=== PATIENT | female | born 1985 | race Caucasian/White ===

== ENCOUNTER 2019-01-22 05:50 | Emergency (ER) | payer SELFPAY ==
[2019-01-22] MEDS ORDERED: BENZONATATE 100 MG CAP PO ONE (07:10)
[2019-01-22] MEDS ORDERED: ONDANSETRON 4 MG (ODT) TAB ONE (07:10)
--- NOTE | 2019-01-22 07:32 | ER ---
Nurse's Notes [facility] Name: Lara Jackson Age: 33 yrs Sex: Female : 1985 Arrival Date: 01/22/2019 Time: 05:53 Bed 8 Private MD: Diagnosis: Acute upper respiratory infection, unspecified Presentation: 01/22 06:05 Presenting complaint: Patient states: she has been coughing up green "chunks" x 3 days, bb she is congested, disoriented, nauseous, and vomited x 1 one day ago. Pt also c/o upper abdominal pain and a sore throat. Pt states she swam [place] the [facility] [place] on and does not know if that has anything to do with it. Transition of care: patient was not received from another setting of care. Onset of symptoms was January 19, 2019. Risk Assessment: Do you want to hurt yourself or someone else? Patient reports no desire to harm self or others. Initial Sepsis Screen: Does the patient meet any 2 criteria? No. Patient's initial sepsis screen is negative. Does the patient have a suspected source of infection? No. Patient's initial sepsis screen is negative. Care prior to arrival: None. 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 - Social history:: Smoking status: Patient uses tobacco products, smokes one pack cigarettes per day. Patient/guardian denies using alcohol, street drugs. - Ebola Screening: : No symptoms or risks identified at this time. Screenin:05 Abuse screen: Denies threats or abuse. Denies injuries from another. Nutritional rr5 screening: No deficits noted. Tuberculosis screening: No symptoms or risk factors identified. Fall Risk None identified. Total Jasso Fall Scale indicates No Risk (0-24 pts). Assessment: 06:05 General: Appears in no apparent distress. uncomfortable, Behavior is calm, cooperative, rr5 appropriate for age. Pain: Complains of pain in abdomen Pain does not radiate. Pain currently is 4 out of 10 on a pain scale. Quality of pain is described as aching, Pain began gradually, Is intermittent. 06:05 Neuro: Level of Consciousness is awake, alert, obeys commands, Oriented to person, rr5 place, time, situation, Appropriate for age. Cardiovascular: Capillary refill < 3 seconds Patient's skin is warm and dry. Respiratory: Reports cough that is productive, Airway is patent Respiratory effort is even, unlabored, Respiratory pattern is regular, symmetrical, Sputum is thick, green. GI: Abdomen is round non-distended, Reports lower abdominal pain, upper abdominal pain, nausea, vomiting. : No signs and/or symptoms were reported regarding the genitourinary system. EENT: No signs and/or symptoms were reported regarding the EENT system. Derm: Skin is intact, Skin temperature is warm. Musculoskeletal: Circulation, motion, and sensation intact. Capillary refill < 3 seconds. 07:00 Reassessment: Patient appears in no apparent distress at this time. Patient is alert, rr5 oriented x 3, equal unlabored respirations, skin warm/dry/pink. came back from [facility] via wheelchair assisted by xray staff. 07:57 Reassessment: Patient is alert, oriented x 3, equal unlabored respirations, skin aa5 warm/dry/pink. Vital Signs: 06:09 BP 104 / 74; Pulse 71; Resp 16 S; Temp 97.4(O); Pulse Ox 98% on R/A; Weight 68.04 kg bb (R); Height 5 ft. 2 in. (157.48 cm) (R); 07:55 BP 109 / 72; Pulse 64; Resp 16 S; Temp 97.5(TE); Pulse Ox 99% on R/A; aa5 06:09 Body Mass Index 27.44 (68.04 kg, 157.48 cm) bb ED Course: 05:53 Patient arrived in ED. ds1 05:58 Ronak Selby, RN is Primary Nurse. rr5 06:05 Patient has correct armband on for positive identification. Bed in low position. Call rr5 light in reach. 06:08 Triage completed. bb 06:09 Arm band placed on Patient placed in an exam room, on a stretcher, on pulse oximetry. bb Family accompanied patient. 06:22 Dave Pugh PA is PHCP. cp 06:22 Silverio Go MD is Attending Physician. 06:58 X-ray completed. Patient tolerated procedure well. Patient moved back from radiology. 1 07:01 XRAY Chest Pa And Lat (2 Views) In Process Unspecified. EDMS 07:57 No provider procedures requiring assistance completed. Patient did not have IV access aa5 during this emergency room visit. Administered Medications: 06:54 Drug: Zofran 4 mg Route: PO; ea 07:57 Follow up: Response: No adverse reaction aa5 06:54 Drug: Tessalon Perle 200 mg Route: PO; ea 07:57 Follow up: Response: No adverse reaction aa5 Outcome: 07:31 Discharge ordered by MD. cp 07:57 Discharged to home ambulatory, with significant other. aa5 07:57 Condition: stable 07:57 Discharge instructions given to patient, Instructed on discharge instructions, follow up and referral plans. medication usage, Demonstrated understanding of instructions, follow-up care, medications, Prescriptions given X 3. 07:58 Patient left the ED. aa5 Signatures: Dispatcher [employer] EDMS Amalia Gaytan mh1 [employer] ds1 [address]ena [address] RN RN Carrie Bernal, RN RN aa5 Dave Pugh PA PA cp Antunez, Elena, RN RN Ronak Rich, RN RN rr5
--- NOTE | 2019-01-22 07:32 | EDPHYS ---
Physician Documentation [facility] Name: Lara Jackson Age: 33 yrs Sex: Female : 1985 Arrival Date: 01/22/2019 Time: 05:53 Bed 8 Private MD: ED Physician Silverio Go HPI: 01/22 06:45 This 33 yrs old Female presents to ER via Ambulatory with complaints of cp Cough, Nausea. 06:45 The patient or guardian reports cough, that is intermittent, with productive sputum, cp that is green. Onset: The symptoms/episode began/occurred 3 day(s) ago. Severity of symptoms: in the emergency department the symptoms are unchanged, despite home interventions. Associated signs and symptoms: Pertinent positives: nausea, sore throat, Pertinent negatives: chest pain, diarrhea, fever, active vomiting. 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 - Social history:: Smoking status: Patient uses tobacco products, smokes one pack cigarettes per day. Patient/guardian denies using alcohol, street drugs. - Ebola Screening: : No symptoms or risks identified at this time. ROS: 06:50 Constitutional: Negative for body aches, chills, fever, poor PO intake. cp 06:50 Eyes: Negative for injury, pain, redness, and discharge. cp 06:50 ENT: Positive for sore throat, Negative for drainage from ear(s), ear pain, sinus pain, difficulty swallowing, difficulty handling secretions. 06:50 Respiratory: Positive for cough, with green sputum, Negative for shortness of breath, wheezing. 06:50 Abdomen/GI: Positive for abdominal pain, nausea, Negative for diarrhea, constipation, active vomiting. 06:50 Back: Negative for radiated pain. 06:50 : Negative for urinary symptoms. 06:50 Neuro: Negative for altered mental status, headache, weakness. 06:50 All other systems are negative. Exam: 06:50 Head/Face: Normocephalic, atraumatic. cp 06:50 Constitutional: The patient appears in no acute distress, alert, awake, non-toxic, well developed, well nourished. 06:50 Eyes: Periorbital structures: appear normal, Conjunctiva: normal, no exudate, no injection, Lids and lashes: appear normal, bilaterally. 06:50 ENT: External ear(s): are unremarkable, Ear canal(s): are normal, clear, TM's: bulging, is not appreciated, bilaterally, dullness, bilaterally, erythema, is not appreciated, bilaterally, Nose: is normal, Mouth: Lips: moist, Oral mucosa: moist, Posterior pharynx: Airway: no evidence of obstruction, patent, Tonsils: with erythema, no exudate, erythema, that is mild, exudate, is not appreciated. 06:50 Neck: ROM/movement: is normal, is supple, without pain, no range of motions limitations, no meningismus, no nuchal rigidity. 06:50 Chest/axilla: Inspection: normal, Palpation: is normal, no crepitus, no tenderness. 06:50 Cardiovascular: Rate: normal, Rhythm: regular. 06:50 Respiratory: the patient does not display signs of respiratory distress, Respirations: normal, no use of accessory muscles, no retractions, no splinting, no tachypnea, labored breathing, is not present, Breath sounds: decreased breath sounds, are not appreciated, stridor, is not appreciated, + upper airway congestion. wheezing: is not appreciated. 06:50 Abdomen/GI: Inspection: abdomen appears normal, Palpation: abdomen is soft and non-tender, in all quadrants, involuntary guarding, is not appreciated. Vital Signs: 06:09 BP 104 / 74; Pulse 71; Resp 16 S; Temp 97.4(O); Pulse Ox 98% on R/A; Weight 68.04 kg bb (R); Height 5 ft. 2 in. (157.48 cm) (R); 07:55 BP 109 / 72; Pulse 64; Resp 16 S; Temp 97.5(TE); Pulse Ox 99% on R/A; aa5 06:09 Body Mass Index 27.44 (68.04 kg, 157.48 cm) bb MDM: 06:39 Patient medically screened. cp 07:20 Differential Diagnosis: Bronchitis Influenza Sinusitis Pharyngitis Otitis Media Viral cp Syndrome Pneumonia. 07:20 Data reviewed: vital signs, nurses notes, lab test result(s), radiologic studies, plain cp films. Test interpretation: by ED physician or midlevel provider: chest xray negative for infiltrates. Counseling: I had a detailed discussion with the patient and/or guardian regarding: the historical points, exam findings, and any diagnostic results supporting the discharge/admit diagnosis, lab results, radiology results, to return to the emergency department if symptoms worsen or persist or if there are any questions or concerns that arise at home. Response to treatment: the patient's symptoms have markedly improved after treatment, and as a result, I will discharge patient. 01/22 06:38 Order name: Influenza Screen (a \T\ B); Complete Time: 07:18 cp 01/22 06:38 Order name: Strep; Complete Time: 07:18 cp 01/22 06:38 Order name: XRAY Chest Pa And Lat (2 Views); Complete Time: 02:16 cp 01/22 07:24 Order name: Throat Culture EDMS Administered Medications: 06:54 Drug: Zofran 4 mg Route: PO; ea 07:57 Follow up: Response: No adverse reaction aa5 06:54 Drug: Tessalon Perle 200 mg Route: PO; ea 07:57 Follow up: Response: No adverse reaction aa5 Disposition: 01/22/19 07:31 Discharged to Home. Impression: Acute upper respiratory infection, unspecified. - Condition is Stable. - Discharge Instructions: Upper Respiratory Infection, Adult. - Prescriptions for Ibuprofen 800 mg Oral Tablet - take 1 tablet by ORAL route every 8 hours As needed take with food; 30 tablet. Tessalon Perles 100 mg Oral Capsule - take 1 capsule by ORAL route every 8 hours As needed; 15 capsule. Albuterol Sulfate 90 mcg/actuation - inhale 1-2 puff by INHALATION route every 4-6 hours; 1 Inhaler. - Medication Reconciliation Form, Thank You Letter, Antibiotic Education, Prescription Opioid Use form. - Follow up: Private Physician; When: 2 - 3 days; Reason: Worsening of condition. - Problem is new. - Symptoms have improved. Addendum: 01/24/2019 07:07 Co-signature as Attending Physician, Silverio mills Signatures: Dispatcher [employer] EDDC Celena St RN Silverio Khan MD MD rn Calderon, Audri, RN RN aa5 Dave Pugh, SHANAE PA cp Marni Stewart RN JOSÉ LUIS orellana Corrections: (The following items were deleted from the chart) 01/22 07:57 06:39 Urine Test ordered. cp aa5 07:58 07:31 01/22/2019 07:31 Discharged to Home. Impression: Acute upper respiratory aa5 infection, unspecified. Condition is Stable. Forms are Medication Reconciliation Form, Thank You Letter, Antibiotic Education, Prescription Opioid Use. Follow up: Private Physician; When: 2 - 3 days; Reason: Worsening of condition. Problem is new. Symptoms have improved. 07:59 06:39 Urine Dipstick-Ancillary ordered. ulysses aa5
[2019-01-22 08:06] VITALS: BP 109/72; TEMP 97.5; O2SAT 99
--- NOTE | 2019-01-22 08:19 | RAD REPORT ---
EXAM DESCRIPTION: RAD - Chest Pa And Lat (2 Views) - 01/22/2019 7:01 am CLINICAL HISTORY: Cough and congestion, fever COMPARISON: June 2007 TECHNIQUE: PA and lateral views of the chest were obtained. FINDINGS: The lungs are clear. Heart size is normal and central vasculature is within normal limit s. No pleural effusion or pneumothorax seen. No acute bony finding noted. No aortic abnormality. IMPRESSION: No acute cardiopulmonary process. No significant change from comparison.
== END 2019-01-22 07:58 | disposition home or self-care (01) ==
LOC: ER 05:50
DX: J06.9 Acute upper respiratory infection, unspecified (principal); F17.210 Nicotine dependence, cigarettes, uncomplicated
CPT/HCPCS: 71046; 87070; 87081; 87804; 99284

== ENCOUNTER 2021-08-28 15:28 | Emergency (ER) | payer SELFPAY ==
[2021-08-28] MEDS ORDERED: IBUPROFEN 400 MG TAB ONE (16:36)
--- NOTE | 2021-08-28 17:56 | RAD REPORT ---
EXAM DESCRIPTION: CT - Soft Tissue Neck W/Contr - 08/28/2021 5:36 pm CLINICAL HISTORY: right jaw pain COMPARISON: CT MULTIPLANAR RECONSTRUCTION dated 07/24/2007 TECHNIQUE: During dynamic enhancement using 100 milliliters nonionic IV contrast, axial 5 millimeter thick images of the neck were obtained. All CT scans are performed using dose optimization technique as appropriate and may include automated exposure control or mA/KV adjustment according to patient size. FINDINGS: Intracranial portion the examination is unremarkable. No globe or orbital content abnormal ity seen. Mastoid air cells and paranasal sinuses are clear. No pharyngeal mucosal mass or asymmetry. No tongue base or tonsillar abnormality seen. No epiglottis thickening. Vocal cords are unremarkable. No abnormal enlargement or enhancement abnormality of either parotid gland. There are small lymph nod es within and adjacent to each parotid gland that show low-level enhancement. No submandibular or thy roid gland abnormality seen. Patient has bilateral cervical lymph nodes. No large or bulky lymphadenopathy. Largest lymph node on the right posterior to the angle of the mandible is 18 x 12 mm. Largest lymph node on the left pharmacy technician ior to the angle of the mandible is 14 x 10 mm. Additional smaller bilateral cervical lymph nodes are present No necrotic or abscessed lymph nodes seen. Patient does appear to have some mild congestion or edema in the periauricular soft tissues and each external auditory canal. This can be correlated with physical exam findings. No abnormality within ei ther auditory canal. Mastoid air cells and middle ears are fully aerated. No ossicle abnormality. No vascular abnormality seen. No bony abnormalities. IMPRESSION: Subtle edema and thickening seen in theperiauricular soft tissues and each external maryan tory canal. This can be correlated with any clinical findings. Patient has a few small nonspecific reactive type bilateral cervical lymph nodes.
--- NOTE | 2021-08-28 18:09 | EDPHYS ---
Physician Documentation [facility] Name: Lara Jackson Age: 36 yrs Sex: Female : 1985 Arrival Date: 08/28/2021 Time: 15:43 Bed 9 Private MD: SOLOMON Physician Dave Mata HPI: 08/28 16:00 This 36 yrs old Female presents to ER via Ambulatory with complaints of Toothache. jmm 16:00 The patient presents with pain, swelling. Onset: The symptoms/episode began/occurred jmm gradually, 2 day(s) ago. Duration: The symptoms are continuous. Modifying factors: The symptoms are alleviated by nothing, the symptoms are aggravated by nothing. Associated signs and symptoms: Pertinent positives: swelling, Pertinent negatives: fever. The patient has not experienced similar symptoms in the past. 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 - Social history:: Smoking status: Patient reports the use of cigarette tobacco products, smokes one-half pack cigarettes per day. ROS: 16:00 Cardiovascular: Negative for chest pain, palpitations, and edema, Respiratory: Negative jmm for shortness of breath, cough, wheezing, and pleuritic chest pain, Abdomen/GI: Negative for abdominal pain, nausea, vomiting, diarrhea, and constipation. 16:00 Constitutional: Positive for body aches, chills. 16:00 ENT: Positive for dental pain. 16:00 All other systems are negative. Exam: 16:00 Constitutional: This is a well developed, well nourished patient who is awake, alert, jmm and in no acute distress. Head/Face: atraumatic. Eyes: EOMI, no conjunctival erythema appreciated 16:00 Neck: Trachea midline, Supple Chest/axilla: Normal chest wall appearance and motion. Cardiovascular: Regular rate and rhythm. No edema appreciated Respiratory: Normal respirations, no respiratory distress appreciated Abdomen/GI: Non distended, soft Back: Normal ROM Skin: General appearance color normal MS/ Extremity: Moves all extremities, no obvious deformities appreciated, no edema noted to the lower extremities Neuro: Awake and alert Psych: Behavior is normal, Mood is normal, Patient is cooperative and pleasant 16:00 ENT: Posterior pharynx: erythema, that is mild. Vital Signs: 15:49 BP 127 / 86; Pulse 100; Resp 16; Temp 97.8; Pulse Ox 98% ; Weight 72.57 kg; Height 5 ll1 ft. 2 in. (157.48 cm); Pain 10/10; 17:50 BP 132 / 90; Pulse 90; Resp 16 S; Pulse Ox 95% on R/A; Pain 8/10; jg9 15:49 Body Mass Index 29.26 (72.57 kg, 157.48 cm) ll1 MDM: 16:00 Patient medically screened. [facility] 18:04 Data reviewed: vital signs, nurses notes. Counseling: I had a detailed discussion with pavan the patient and/or guardian regarding: the historical points, exam findings, and any diagnostic results supporting the discharge/admit diagnosis, radiology results, the need for outpatient follow up, to return to the emergency department if symptoms worsen or persist or if there are any questions or concerns that arise at home. ED course: Ct is negative for abscess. Advised to follow up with pcp and otherwise given strict return precautions. patient understood and agrees with the plan of care. . 08/28 16:01 Order name: Soft Tissue Neck W/Contr CT; Complete Time: 18:01 [facility] 08/28 16:01 Order name: Saline Lock; Complete Time: 17:25 [facility] Administered Medications: 16:34 Drug: Motrin (ibuprofen) 800 mg Route: PO; jg9 17:25 Follow up: Response: Adverse reaction, Physician notified; Pain is decreased jg9 Disposition Summary: 08/28/21 18:09 Discharge Ordered Location: Home [facility] Condition: Stable [facility] Diagnosis - Lymphadenopathy [facility] Followup: [facility] - With: Private Physician - When: 2 - 3 days - Reason: Recheck today's complaints, Continuance of care, Re-evaluation by your physician Discharge Instructions: - Discharge Summary Sheet [facility] - Lymphadenopathy [facility] Forms: - Medication Reconciliation Form [facility] - Thank You Letter [facility] - Antibiotic Education [facility] - Prescription Opioid Use [facility] Prescriptions: - Augmentin 875-125 mg Oral Tablet - take 1 tablet by ORAL route every 12 hours for 10 days; 20 tablet; Refills: 0, allegra Product Selection Permitted - orphenadrine citrate 100 mg Oral Tablet Sustained Release - take 1 tablet by ORAL route 2 times per day As needed; 20 tablet; Refills: 0, allegra Product Selection Permitted Signatures: Dispgalindoer [employer] Brooks Clinton PA PA jmm Lewis, Lynsay, RN RN ll1 Darby Mason RN RN jg9
--- NOTE | 2021-08-28 18:09 | ER ---
Nurse's Notes [facility] Name: Lara Jackson Age: 36 yrs Sex: Female : 1985 Arrival Date: 08/28/2021 Time: 15:43 Bed 9 Private MD: Diagnosis: Lymphadenopathy Presentation: 08/28 15:49 Chief complaint: Patient states: R lower jaw pain for 2 days. Took a friends old ll1 antibiotics, no relief yet. Noticed white area to inner L cheek today. Concerned about thrush. No fever. Coronavirus screen: Vaccine status: Patient reports being unvaccinated. Client denies travel out of the [place] in the last 14 days. At this time, the client does not indicate any symptoms associated with coronavirus-19. Ebola Screen: Patient denies travel to an Ebola-affected area in the 21 days before illness onset. Initial Sepsis Screen: Does the patient meet any 2 criteria? HR > 90 bpm. No. Patient's initial sepsis screen is negative. Does the patient have a suspected source of infection? Yes: Other: tooth/gum pain. Risk Assessment: Do you want to hurt yourself or someone else? Patient reports no desire to harm self or others. Onset of symptoms was August 26, 2021. 15:49 Method Of Arrival: Ambulatory ll1 15:49 Acuity: TELMA 4 ll1 Triage Assessment: 15:53 General: Appears uncomfortable, Behavior is calm, cooperative, appropriate for age. ll1 Pain: Complains of pain in R jaw Quality of pain is described as aching. EENT: Reports pain in right jaw. Neuro: No deficits noted. Cardiovascular: No deficits noted. Respiratory: No deficits noted. Derm: Reports white area to inner L cheek. 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 - Social history:: Smoking status: Patient reports the use of cigarette tobacco products, smokes one-half pack cigarettes per day. Screenin:53 Abuse screen: Denies threats or abuse. Nutritional screening: No deficits noted. ll1 Tuberculosis screening: No symptoms or risk factors identified. Fall Risk Total Jasso Fall Scale indicates No Risk (0-24 pts). Assessment: 16:37 Reassessment: No changes from previously documented assessment. see triage assessment. j9 17:52 Reassessment: Patient states symptoms have improved. jg9 Vital Signs: 15:49 BP 127 / 86; Pulse 100; Resp 16; Temp 97.8; Pulse Ox 98% ; Weight 72.57 kg; Height 5 1 ft. 2 in. (157.48 cm); Pain 10/10; 17:50 BP 132 / 90; Pulse 90; Resp 16 S; Pulse Ox 95% on R/A; Pain 8/10; jg9 15:49 Body Mass Index 29.26 (72.57 kg, 157.48 cm) 1 ED Course: 15:43 Patient arrived in ED. 1 15:43 Arm band placed on. [facility] 15:49 Brooks Whitaker PA is PHCP. [facility] 15:49 Dave Mata MD is Attending Physician. [facility] 15:53 Triage completed. 1 15:54 Patient has correct armband on for positive identification. Bed in low position. Call [facility] light in reach. Side rails up X 1. Cardiac monitoring not applicable on this patient. 16:33 Darby Mason, RN is Primary Nurse. j9 16:37 Inserted saline lock: 20 gauge in left antecubital area, using aseptic technique. jg9 16:[address] Scan. jg9 17:36 Soft Tissue Neck W/Contr CT In Process Unspecified. EDMS 18:28 No provider procedures requiring assistance completed. jg9 18:29 IV discontinued. jg9 Administered Medications: 16:34 Drug: Motrin (ibuprofen) 800 mg Route: PO; jg9 17:25 Follow up: Response: Adverse reaction, Physician notified; Pain is decreased jg9 Outcome: 18:09 Discharge ordered by . [facility] 18:28 Discharged to home ambulatory. jg9 18:28 Condition: stable 18:28 Discharge instructions given to patient, Instructed on discharge instructions, follow up and referral plans. Demonstrated understanding of instructions, follow-up care, medications, Prescriptions given X 2. 18:29 Patient left the ED. jg9 Signatures: Dispatcher [employer] EDMS Mickail, Brooks, PA PA jmm Mauricio, Lynsay, RN RN ll1 Darby Mason RN RN jg9
[2021-08-28 20:25] VITALS: TEMP 97.8
[2021-08-28 20:26] VITALS: BP 132/90; O2SAT 95
== END 2021-08-28 18:29 | disposition home or self-care (01) ==
LOC: ER 15:28
DX: R59.0 Localized enlarged lymph nodes (principal); F17.210 Nicotine dependence, cigarettes, uncomplicated
CPT/HCPCS: 70491; 99284; Q9967

== ENCOUNTER 2023-02-13 18:43 | Emergency (ER) | payer SELFPAY ==
--- NOTE | 2023-02-13 19:49 | RAD REPORT ---
EXAM DESCRIPTION: CT - Head Brain Wo Cont - 02/13/2023 7:32 pm CLINICAL HISTORY: WEAKNESS COMPARISON: HEAD BRAIN W O CONTRAST dated 07/24/2007 TECHNIQUE: Noncontrast head CT images were obtained without IV contrast. Multiplanar reformats were generated and reviewed. All CT scans are performed using dose optimization technique as appropriate and may include automated exposure control or mA/KV adjustment according to patient size. FINDINGS: No intracranial hemorrhage, mass, or edema. Midline structures are unremarkable. Normal ventricular caliber for age. Kinsey-white matter differentiation is preserved, without evidence of acute infarct. No abnormal extra- axial fluid collections. Mastoid air cells and visualized portions of the paranasal sinuses are clear. No acute bony findings. IMPRESSION: No evidence of an acute intracranial process.
[2023-02-13 20:16] LABS: Absolute Lymphocytes (CBC) 2.2 K/uL (0.7-4.9); Hematocrit 38.8 % (36.0-45.0); Lymphocytes % 19.2 % (15.3-44.8); MCV 86.6 fL (80-100); MPV 7.9 fL (7.6-11.3); Platelets 376 thou/uL (152-406); RBC Red Blood Cell Count 4.48 M/uL (3.86-4.86)
[2023-02-13 20:41] LABS: Specific Gravity 1.024 (1.005-1.030); Urine Bacteria <20 /HPF (<20); Urine Bilirubin NEGATIVE (Negative); Urine Blood Negative (Negative); Urine Clarity Extremely Turbid (Clear); Urine Color Light-Yellow (Yellow); Urine Crystals Unidentified Few /HPF (None Seen); Urine Glucose NEGATIVE (Negative); Urine Mucus Slight /HPF (None Seen); Urine Protein NEGATIVE (Negative); Urine Urobilinogen Normal (Normal); Urine pH 5.5 (5.0-7.0)
[2023-02-13 20:42] LABS: Barbiturates NEGATIVE (NEGATIVE); Benzodiazepines NEGATIVE (NEGATIVE); Cocaine NEGATIVE (NEGATIVE); METHAMPHETAM NEGATIVE (NEGATIVE); Methadone NEGATIVE (NEGATIVE); Opiates NEGATIVE (NEGATIVE); Phencyclidine NEGATIVE (NEGATIVE); THC Cannibis NEGATIVE (NEGATIVE)
[2023-02-13 21:11] LABS: BUN Blood Urea Nitrogen 13 mg/dL (7-18); Bicarbonate 26 mEq/L (21-32); Glomerular Filtration Rate 76 ml/min (=/>90); Glucose Level 99 mg/dL (74-106); Potassium 3.4 mEq/L (3.5-5.1); Sodium Level 139 mEq/L (136-145); T3 Free 2.63 pg/mL (2.18-3.98)
[2023-02-13 21:12] LABS: Troponin High Sensitivity < 3.0 pg/mL (<58.9)
--- NOTE | 2023-02-13 21:43 | RAD REPORT ---
EXAM DESCRIPTION: [place] Single View02/13/2023 7:58 pm CLINICAL HISTORY: CHEST PAIN COMPARISON: Chest Pa And Lat (2 Views) dated 01/22/2019; CHEST PA AND LAT 2 VIEW dated 07/24/2007 TECHNIQUE: Portable AP view of the chest. FINDINGS: The lungs are clear. No pneumothorax or effusion. The cardiomediastinal contours are unrem arkable. IMPRESSION: No acute cardiopulmonary process.
[2023-02-13] MEDS ORDERED: POTASSIUM 25 MEQ EFFERV TAB ONE (22:53)
--- NOTE | 2023-02-13 23:11 | ER ---
Nurse's Notes [facility] Name: Lara Jackson Age: 37 yrs Sex: Female : 1985 Arrival Date: 02/13/2023 Time: 18:43 Bed 3 Private MD: Diagnosis: Other malaise and fatigue;Paresthesia of skin;Weakness;Hypokalemia Presentation: 02/13 19:08 Chief complaint: Patient states: Lightheaded, tingling on right foot and both hands for nj1 about a week and a half ago. Fatigued, malaise. Coronavirus screen: Vaccine status: Patient reports being unvaccinated. Ebola Screen: Patient denies travel to an Ebola-affected area in the 21 days before illness onset. Initial Sepsis Screen: Does the patient meet any 2 criteria? No. Patient's initial sepsis screen is negative. Does the patient have a suspected source of infection? No. Patient's initial sepsis screen is negative. Risk Assessment: Do you want to hurt yourself or someone else? Patient reports no desire to harm self or others. Onset of symptoms was January 2023. 19:08 Method Of Arrival: Ambulatory [facility] [place] 19:08 Acuity: TELMA 3 [facility] [place] Triage Assessment: 22:30 General: Behavior is calm, cooperative. jw7 Historical: - Allergies: 19:13 No Known Allergies; nj1 - PMHx: 19:13 mitral valve prolapse; Heart Murmur; nj1 - PSHx: 19:13 section; section; section; nj1 - Immunization history:: Client reports having NOT received the Covid vaccine. - Social history:: Smoking status: Patient/guardian denies using tobacco, Stopped _ months ago .5. Screenin:29 [facility] ED Fall Risk Assessment (Adult) History of falling in the last 3 months, jw7 including since admission No falls in past 3 months (0 pts) Score/Fall Risk Level 0 - 2 = Low Risk. Abuse screen: Denies threats or abuse. Denies injuries from another. Nutritional screening: No deficits noted. Tuberculosis screening: No symptoms or risk factors identified. Assessment: 22:27 General: Appears in no apparent distress. comfortable. Pain: Denies pain. Neuro: No jw7 deficits noted. Buckley Agitation-Sedation Scale (RASS): 0 - Alert and Calm Level of Consciousness is awake, alert, obeys commands, Oriented to person, place, time, situation. Cardiovascular: No deficits noted. Heart tones S1 S2 present Capillary refill < 3 seconds Clubbing of nail beds is absent JVD is absent Patient's skin is warm and dry. Rhythm is sinus rhythm. Respiratory: No deficits noted. Airway is patent Trachea midline Respiratory effort is even, unlabored, Respiratory pattern is regular, symmetrical, Breath sounds are clear bilaterally. GI: No deficits noted. No signs and/or symptoms were reported involving the gastrointestinal system. : No deficits noted. No signs and/or symptoms were reported regarding the genitourinary system. EENT: No deficits noted. No signs and/or symptoms were reported regarding the EENT system. Derm: No deficits noted. No signs and/or symptoms reported regarding the dermatologic system. Skin is intact, is healthy with good turgor, Skin is dry, Skin is normal, Skin temperature is warm. Musculoskeletal: No deficits noted. No signs and/or symptoms reported regarding the musculoskeletal system. Circulation, motion, and sensation intact. 23:24 Reassessment: Patient appears in no apparent distress at this time. No changes from jw7 previously documented assessment. Patient and/or family updated on plan of care and expected duration. Pain level reassessed. Patient is alert, oriented x 3, equal unlabored respirations, skin warm/dry/pink. Patient denies pain at this time. Vital Signs: 19:08 BP 119 / 93; Pulse 74; Resp 18; Temp 98.9; Pulse Ox 100% ; Weight 81.65 kg; Height 5 nj1 ft. 2 in. ; Pain 4/10; 22:21 BP 132 / 67; Pulse 62; Resp 20 S; Pulse Ox 98% on R/A; jw7 23:24 BP 118 / 80; Pulse 68; Resp 18 S; Pulse Ox 100% on R/A; jw7 19:08 Body Mass Index 32.92 (81.65 kg, 157.48 cm) nj1 19:08 Pain Scale: Adult fl1 ED Course: 18:45 Patient arrived in ED. ts1 18:50 Dave Pugh PA is PHCP. cp 18:50 Ilya Batres MD is Attending Physician. cp 19:13 Triage completed. nj1 19:14 Arm band placed on left wrist. nj1 19:32 CT Head Brain wo Cont In Process Unspecified. EDMS 20:00 XRAY Chest (1 view) In Process Unspecified. EDMS 20:08 T3 Free Sent. bc6 20:08 TSH Sent. bc6 20:09 Basic Metabolic Panel Sent. bc6 20:09 CBC with Diff Sent. bc6 20:09 Magnesium Sent. bc6 20:09 Troponin HS Sent. bc6 20:09 Inserted saline lock: 20 gauge in left antecubital area, using aseptic technique. Blood bc6 collected. 20:25 Urinalysis W/Microscopic Sent. bc6 20:25 PREGU Sent. bc6 20:26 UDS Sent. bc6 22:20 Sanjana See, RN is Primary Nurse. jw7 22:29 Patient has correct armband on for positive identification. Bed in low position. Call jw7 light in reach. Side rails up X 1. 23:23 Provided Education on: discharge instructions. jw7 23:23 No provider procedures requiring assistance completed. IV discontinued, intact, jw7 bleeding controlled, No redness/swelling at site. Pressure dressing applied. Administered Medications: 22:47 Drug: Potassium PO Effervescent Tablet 25 mEq Route: PO; rv 23:25 Follow up: Response: No adverse reaction jw7 Medication: 23:24 VIS not applicable for this client. jw7 Outcome: 23:11 Discharge ordered by . ulysses 23:23 Discharged to home ambulatory. jw7 23:23 Condition: stable 23:23 Discharge instructions given to patient, Instructed on discharge instructions, follow up and referral plans. Demonstrated understanding of instructions, follow-up care. 23:25 Patient left the ED. jw7 Signatures: Dispatcher [employer] EDIL Dave Pugh PA PA cp Vicente, Ronaldo, RN RN rv Sanjana See, RN RN jw7 Matilda Chance 6 Kindra Bailey RN RN nj1 Geovanna Cisneros PAS PAS ts1
--- NOTE | 2023-02-13 23:11 | EDPHYS ---
Physician Documentation [facility] Name: Lara Jackson Age: 37 yrs Sex: Female : 1985 Arrival Date: 02/13/2023 Time: 18:43 Bed 3 Private MD: ED Physician Ilya Batres HPI: 02/13 19:30 This 37 yrs old Female presents to ER via Ambulatory with complaints of General cp Weakness, Tingling hands. 19:30 general weakness, fatigue. cp 19:30 Onset: The symptoms/episode began/occurred 1.5 week(s) ago. Severity of symptoms: in cp the emergency department the symptoms are unchanged despite home interventions. Patient reports intermittent tingling in hands and persistent tingling of right foot. Historical: - Allergies: 19:13 No Known Allergies; nj1 - PMHx: 19:13 mitral valve prolapse; Heart Murmur; nj1 - PSHx: 19:13 section; section; section; nj1 - Immunization history:: Client reports having NOT received the Covid vaccine. - Social history:: Smoking status: Patient/guardian denies using tobacco, Stopped _ months ago .5. ROS: 19:35 Constitutional: Positive for fatigue, malaise, Negative for body aches, chills, fever, cp poor PO intake. 19:35 Eyes: Negative for injury, pain, redness, and discharge. cp 19:35 ENT: Negative for drainage from ear(s), ear pain, sore throat, difficulty swallowing, difficulty handling secretions. 19:35 Cardiovascular: Negative for chest pain, edema, palpitations. 19:35 Respiratory: Negative for cough, shortness of breath, wheezing. 19:35 Abdomen/GI: Negative for abdominal pain, nausea, vomiting, and diarrhea. 19:35 Back: Negative for injury or acute deformity, decreased range of motion. 19:35 Neuro: Positive for tingling, weakness, of the right hand, left hand and right foot, Negative for altered mental status, headache, syncope. 19:35 All other systems are negative. Exam: 19:40 Constitutional: The patient appears in no acute distress, alert, awake, cp non-diaphoretic, non-toxic, well developed, well nourished. 19:40 Head/Face: Normocephalic, atraumatic. cp 19:40 Eyes: Periorbital structures: appear normal, Pupils: equal, round, and reactive to light and accomodation, Extraocular movements: intact throughout, Conjunctiva: normal, no exudate, no injection, Sclera: no appreciated abnormality, Lids and lashes: appear normal, bilaterally. 19:40 ENT: External ear(s): are unremarkable, Nose: is normal, Mouth: Lips: moist, Oral mucosa: pink and intact, moist, Posterior pharynx: is normal, airway is patent, no erythema, no exudate. 19:40 Neck: C-spine: vertebral tenderness, is not appreciated, crepitus, is not appreciated, ROM/movement: is normal, is supple, without pain, no range of motions limitations. 19:40 Chest/axilla: Inspection: normal. 19:40 Cardiovascular: Rate: normal, Rhythm: regular. 19:40 Respiratory: the patient does not display signs of respiratory distress, Respirations: normal, no use of accessory muscles, no retractions, labored breathing, is not present, Breath sounds: are clear throughout, no decreased breath sounds, no stridor, no wheezing. 19:40 Abdomen/GI: Inspection: abdomen appears normal, Palpation: abdomen is soft and non-tender, in all quadrants. 19:40 Back: ROM is normal, CVA tenderness, is absent. 19:40 Skin: no rash present. 19:40 Neuro: Orientation: to person, place \T\ time. Mentation: is normal, Cerebellar function: is grossly normal, Motor: moves all fours, strength is normal, Sensation: no obvious gross deficits, Gait: is steady, at a normal pace, without difficulty. 20:25 ECG was reviewed by the Attending Physician. cp Vital Signs: 19:08 BP 119 / 93; Pulse 74; Resp 18; Temp 98.9; Pulse Ox 100% ; Weight 81.65 kg; Height 5 nj1 ft. 2 in. ; Pain 4/10; 22:21 BP 132 / 67; Pulse 62; Resp 20 S; Pulse Ox 98% on R/A; jw7 23:24 BP 118 / 80; Pulse 68; Resp 18 S; Pulse Ox 100% on R/A; jw7 19:08 Body Mass Index 32.92 (81.65 kg, 157.48 cm) ks1 19:08 Pain Scale: Adult nj1 MDM: 19:17 Patient medically screened. 23:10 Data reviewed: vital signs, nurses notes, lab test result(s), EKG, radiologic studies, cp CT scan, plain films. 23:10 Differential Diagnosis anxiety, stress, anemia, neuropathy. Counseling: I had a cp detailed discussion with the patient and/or guardian regarding the historical points, exam findings, and any diagnostic results supporting the discharge/admit diagnosis, lab results, radiology results, the need for outpatient follow up, a family practitioner, to return to the emergency department if symptoms worsen or persist or if there are any questions or concerns that arise at home. 02/13 19:16 Order name: Basic Metabolic Panel; Complete Time: 22:36 02/13 22:36 Interpretation: Normal except: K 3.4; CL 109; GFR 76. 02/13 19:16 Order name: CBC with Diff; Complete Time: 22:36 02/13 22:36 Interpretation: Normal except: WBC 11.70. 02/13 19:16 Order name: Magnesium; Complete Time: 22:36 02/13 19:16 Order name: Troponin HS; Complete Time: 22:36 02/13 22:36 Interpretation: Reviewed. 02/13 19:16 Order name: TSH; Complete Time: 22:36 02/13 19:16 Order name: T3 Free; Complete Time: 22:36 02/13 19:16 Order name: UDS; Complete Time: 22:36 02/13 19:16 Order name: PREGU; Complete Time: 22:36 02/13 19:16 Order name: Urinalysis W/Microscopic; Complete Time: 22:36 02/13 19:16 Order name: CT Head Brain wo Cont; Complete Time: 22:36 02/13 22:36 Interpretation: Report reviewed. 02/13 19:16 Order name: XRAY Chest (1 view); Complete Time: 22:36 02/13 19:16 Order name: EKG; Complete Time: 19:17 02/13 19:16 Order name: Cardiac monitoring; Complete Time: 22:21 02/13 19:16 Order name: EKG - Nurse/Tech; Complete Time: 20:08 02/13 19:16 Order name: IV Saline Lock; Complete Time: 20:08 02/13 19:16 Order name: Labs collected and sent; Complete Time: 20:08 cp 02/13 19:16 Order name: O2 Per Protocol; Complete Time: : cp 02/13 19:16 Order name: O2 Sat Monitoring; Complete Time: 22:21 cp EC:25 Rate is 61 beats/min. Rhythm is regular. SC interval is normal. QRS interval is normal. cp QT interval is normal. T waves are Inverted in lead aVR. Interpreted by me. Reviewed by me. Administered Medications: :47 Drug: Potassium PO Effervescent Tablet 25 mEq Route: PO; rv 23:25 Follow up: Response: No adverse reaction jw7 Disposition Summary: 02/13/23 23:11 Discharge Ordered Location: Home cp Problem: new cp Symptoms: have improved cp Condition: Stable cp Diagnosis - Other malaise and fatigue cp - Paresthesia of skin cp - Weakness cp - Hypokalemia cp Followup: cp - With: Private Physician - When: 2 - 3 days - Reason: Recheck today's complaints Discharge Instructions: - Discharge Summary Sheet cp - Paresthesia cp - Weakness cp - Fatigue cp - Aspirin and Your Heart cp - Hypokalemia cp - Form - Excuse from Work, School, or Physical Activity cp Forms: - Medication Reconciliation Form cp - Thank You Letter cp - Antibiotic Education cp - Prescription Opioid Use cp - Patient Portal Instructions cp - Leadership Thank You Letter cp Signatures: Dispatcher [employer] Dave Ly PA PA cp Vicente, Ronaldo, RN RN rv Kindra Bailey RN RN nj1 Sanjana See RN jw7
[2023-02-13 23:54] VITALS: TEMP 98.9
[2023-02-13 23:56] VITALS: BP 118/80; O2SAT 100
--- NOTE | 2023-02-15 18:01 | EKG ---
Test Date: 2023-02-13 Test Time: 20:18:31 Inserting Press Operator: ABHINAV MEASUREMENT RESULTS: Intervals: Rate: 61 VA: 118 QRSD: 90 QT: 408 QTc: 410 [place]: P: 50 VA: 118 QRS: 72 T: 72 INTERPRETIVE STATEMENTS: Normal sinus rhythm Normal ECG No previous ECG available for comparison Electronically Signed On 02-15-23 17:57:41 CDT by Juan J Johnston
== END 2023-02-13 23:25 | disposition home or self-care (01) ==
LOC: ER 18:43
DX: R53.1 Weakness (principal); R20.2 Paresthesia of skin; R53.81 Other malaise; R53.83 Other fatigue; E87.6 Hypokalemia
CPT/HCPCS: 36415; 70450; 71045; 80048; 80307; 81001; 81025; 83735; 84443; 84481; 84484; 85025; 93005; 99284